=== PATIENT | female | born 1955 | race Caucasian/White ===

== ENCOUNTER → 2019-06-29 | Outpatient (CLI) | payer BC ==
[2019-06-29 10:36] LABS: Anisocytosis Slight; HCT 36.2 % (34.0-46.0); HGB 11.1 gm/dL (11.4-16.0); Hypochromasia Moderate; MCH 24.3 pg (25.0-35.0); MCHC 30.5 g/dL (31.0-37.0); MCV 79.4 fL (80.0-100.0); Mean Platelet Volume 9.1; Microcytosis Slight; Platelet Count 180 k/uL (150-450); RBC 4.56 m/uL (3.80-5.40); RDW 16.2 % (11.5-15.5)
[2019-06-29 10:58] LABS: African American GFR (CKD) >90 (>60 ml/min/1.73 sqM); Anion Gap 7 mmol/L; Blood Urea Nitrogen 20 mg/dL (7-17); Carbon Dioxide 27 mmol/L (22-30); Chloride 105 mmol/L (98-107); Non-African American GFR(CKD) 82 (>60 ml/min/1.73 sqM); Potassium 4.9 mmol/L (3.5-5.1); Sodium 139 mmol/L (137-145)
== END | disposition home or self-care (01) ==
LOC: LABPAT 09:54
PROVIDERS: ATTEND Internal Medicine Interventional Cardiology
DX: Z01.812 Encounter for preprocedural laboratory examination (principal); I25.10 Atherosclerotic heart disease of native coronary artery without angina pectoris
CPT/HCPCS: 36415; 80051; 82565; 84520; 85027

== ENCOUNTER 2019-07-07 09:04 | Day surgery (SDC) | payer BC ==
[2019-07-02 09:35] VITALS: BMI 42.0
[~2019-07-07 09:04] MED LIST: ALPRAZolam 0.25 MG TAB PO PRN; ALPRAZolam 0.5 MG TAB PO PRN; ASPIRIN 325 MG TAB PO STA; ATORVASTATIN 80 MG TAB PO STA; NITROGLYCERIN SL TABS 0.4 MG TAB SUBLINGUAL PRN; SODIUM CHLORIDE 0.9% 1,000 ML in EMPTY BAG 1 BAG IV ONE
[2019-07-07] MEDS ORDERED: hydrALAZINE HCL 20 MG/ML 1 ML VIAL ONE (09:51)
[2019-07-07] MEDS: INSULIN ASPART (NovoLOG) 100 UNIT/ML VIAL SQ SCH ×3 (09:54→21:08)
[2019-07-07 09:55] LABS: Glucose,Whole Blood 242 mg/dL (75-99)
[2019-07-07] MEDS ORDERED: LIDOCAINE 1% INJ 10MG/ML (20 ML MDV) ONE (09:55)
[2019-07-07] MEDS ORDERED: MIDAZOLAM 2 MG/2 ML VIAL IV ONE (10:23)
[2019-07-07] MEDS ORDERED: LIDOCAINE 1% INJ 10MG/ML (20 ML MDV) SQ ONE (10:25)
[2019-07-07] MEDS: MIDAZOLAM 2 MG/2 ML VIAL IV ONE ×2 (10:26→10:30)
[2019-07-07] MEDS ORDERED: BIVALIRUDIN 250 MG in SODIUM CHLORIDE 0.9% 50 ML IV ONE (10:54)
[2019-07-07] MEDS ORDERED: BIVALIRUDIN BOLUS 250 MG/50 ML IV ONE (10:54)
[2019-07-07] MEDS ORDERED: niCARdipine 25 MG/10 ML VIAL ONE (10:56)
[2019-07-07] MEDS: NITROGLYCERIN 1000MCG/10ML SYRINGE INTRACORON ONE ×2 (11:01→11:06)
[2019-07-07] MEDS ORDERED: IOPAMIDOL-370 125ML BTL INJ ONE (11:04)
[2019-07-07] MEDS ORDERED: niCARdipine Syringe (1,000 mcg/10 mL) INTRACORON ONE (11:06)
[2019-07-07] MEDS ORDERED: CLOPIDOGREL 75 MG TAB PO ONE (11:07)
[2019-07-07] MEDS ORDERED: IOPAMIDOL-370 100ML BTL INJ ONE (11:07)
[2019-07-07] MEDS ORDERED: CLOPIDOGREL 75 MG TAB ONE (11:08)
[2019-07-07] MEDS ORDERED: MAG HYDROX/AL HYDROX/SIMETH 30 ML CUP PO PRN (11:17)
[2019-07-07] MEDS ORDERED: RX INFO: IV CONTRAST WAS GIVEN 1 EACH MISC MISCELLANE PRN (11:17)
[2019-07-07] MEDS ORDERED: ZOLPIDEM 5 MG TAB PO PRN (11:17)
[2019-07-07] MEDS ORDERED: NITROGLYCERIN SL TABS 0.4 MG TAB SUBLINGUAL PRN (11:17)
[2019-07-07] MEDS ORDERED: ATROPINE SULFATE 0.1 MG/ML 10ML SYRINGE IV PRN (11:17)
[2019-07-07] MEDS ORDERED: SODIUM CHLORIDE 0.9% 1,000 ML IV SCH (11:30)
--- NOTE | 2019-07-07 11:35 | LTR ---
July 07, 2019 Re: Harini Tran. Dear Dr. Ham: Ms. Harini Tran underwent today a heart catheterization and successful stenting of the RCA I want to thank you for allowing me to participate in her care and please do not hesitate to call if you have any question or concern. Sincerely, MD SHER Wiseman / BONIFACIO: [id number] /
--- NOTE | 2019-07-07 11:53 | CC ---
CARDIAC CATHETERIZATION REPORT CARDIAC CATHETERIZATION AND PERCUTANEOUS CORONARY INTERVENTION: DATE OF SERVICE: July 07, 2019 PERFORMING PHYSICIAN: Laith Vela MD. PROCEDURE PERFORMED: 1. Selective left and right coronary angiogram. 2. STREETER to LAD angiogram. 3. SVG to ramus intermedius angiogram. 4. SVG to left circumflex angiogram. 5. SVG to RCA angiogram. 6. Left heart catheterization. 7. Successful stenting of the distal right coronary artery through SVG using 2.0 x 26 mm [place] ALEX with an excellent angiographic result and reduction of stenosis from 80% to 0%. INDICATION: This is a 63-year-old female patient with coronary artery disease and prior coronary artery bypass grafting where she received STREETER to LAD, SVG to ramus intermedius, SVG to OM, and SVG to RCA, continues to have chest discomfort with exertion concerning for angina. In the past, she underwent a stress test and that revealed reversible defect, but she was treated medically for a while, but lately her symptoms has became more frequent and more intense compared to before and because of that, a heart catheterization was advised. APPROACH: Right common femoral artery. COMPLICATION: None. LEVEL OF SEDATION: Moderate with sedation length of 45 minutes. PROCEDURE DESCRIPTION: After obtaining an informed consent, the patient was brought to the cardiac offset label rewinder. The right common femoral artery was cannulated using micropuncture technique, the micropuncture wire passed easily then I placed a 6-Belizean sheath at the right common femoral artery. Selective left and right coronary angiogram was performed using JL4 and JR4 catheters. STREETER to LAD angiogram, SVG to ramus intermedius angiogram, and SVG to left circumflex angiogram performed using the JR4 catheter. The SVG to RCA angiogram was performed using Mehdi Right catheter. Left heart catheterization was performed using 6-Belizean pigtail catheter. After that I did intervene on the RCA, please see a separate paragraph for that. SELECTIVE CORONARY ANGIOGRAM: 1. Left main appeared to have mild disease only. It bifurcates into LCX and LAD. 2. The LCX is a large caliber vessel. It is a codominant vessel. The proximal circumflex appeared to have mild disease only. It gives rise into the first and second obtuse marginal branches. The first OM is a medium caliber vessel with severe disease in the proximal portion. OM2 is a medium to large caliber vessel with severe disease in the midportion and intermediate disease in the proximal portion reach the ostium. The left circumflex continues after that as a medium to large caliber vessel and seems to be angiographically normal. 3. The LAD: The proximal LAD appeared to be diseased in the range of 50% to 60%. Then the LAD in the midportion is 100% occluded. 4. The right coronary artery is a large caliber vessel with severe disease involving the mid portion. CORONARY BYPASSES ANGIOGRAM: 1. The STREETER to LAD is patent. 2. SVG to ramus intermedius is occluded. 3. SVG to left circumflex is occluded. 4. SVG to RCA is patent, but the RCA distal to the SVG anastomosis has a lesion appeared to be in the range of 70% to 80%. HEMODYNAMICS: The LVEDP was about 10 to 12 mmHg without significant gradient across aortic valve. PCI OF THE RCA: Anticoagulation was initiated using Angiomax. Subsequently I did engage the SVG to RCA using Mehdi Right guide. I did wire it using a whisper wire. After that I did PTCA ballooning using 2.0 x 12 mm balloon before I deployed 2.0 x 26 mm [place] ALEX where the stent was positioned under fluoroscopy guidance and deployed under 20 atmospheres for 20 seconds with the following angiogram showing excellent angiographic results. The procedure was completed without any complication. CONCLUSION: 1. Severe triple-vessel coronary artery disease. 2. Patent STREETER to LAD. 3. Occluded SVG to ramus intermedius. 4. Occluded SVG to left circumflex. 5. Patent SVG to RCA, but the PDA distal to the SVG anastomosis has severe disease. 6. Successful stenting of the PDA branch of the RCA through the SVG using 2.0 x 26 mm Andrey ALEX with excellent angiographic results. POSTPROCEDURE MANAGEMENT: 1. The patient needs to undergo a PCI of the ramus intermedius as well as left circumflex in the next few weeks. 2. Follow up with the patient. MMODL / IJN: [id number] /
[2019-07-07 12:14] LABS: Glucose,Whole Blood 208 mg/dL (75-99)
[2019-07-07] MEDS: GLIMEPIRIDE 2 MG TAB PO SCH (12:54)
[2019-07-07 16:24] LABS: Glucose,Whole Blood 302 mg/dL (75-99)
[2019-07-07] MEDS ORDERED: INSULIN DETEMIR (LEVEMIR) 100 UNIT/ML SYR SQ SCH ×2 (17:30→21:00)
[2019-07-07 20:57] LABS: Glucose,Whole Blood 139 mg/dL (75-99)
[2019-07-07] MEDS ORDERED: ATORVASTATIN 80 MG TAB PO SCH (21:00)
[2019-07-07] MEDS ORDERED: ISOSORBIDE MONONITRATE ER 30 MG TAB.ER.24H PO SCH (21:00)
[2019-07-08 04:30] VITALS: RESP 16
[2019-07-08 06:13] LABS: Glucose,Whole Blood 110 mg/dL (75-99)
[2019-07-08] MEDS: INSULIN ASPART (NovoLOG) 100 UNIT/ML VIAL SQ SCH (06:15)
[2019-07-08] MEDS: GLIMEPIRIDE 2 MG TAB PO SCH (06:45)
[2019-07-08 07:12] LABS: Anisocytosis Slight; Basophils % (A) 0 %; Eosinophils # (A) 0.3 k/uL (0-0.7); Eosinophils % (A) 4 %; HCT 35.5 % (34.0-46.0); HGB 11.1 gm/dL (11.4-16.0); Hypochromasia Slight; Lymphocytes # (A) 1.9 k/uL (1.0-4.8); Lymphocytes % (A) 24 %; MCH 24.8 pg (25.0-35.0); MCHC 31.4 g/dL (31.0-37.0); MCV 79.1 fL (80.0-100.0); Microcytosis Slight; Monocytes # (A) 0.5 k/uL (0-1.0); Monocytes % (A) 6 %; Neutrophils % (A) 64 %; Platelet Count 216 k/uL (150-450); RBC 4.49 m/uL (3.80-5.40); RDW 16.4 % (11.5-15.5); WBC 7.8 k/uL (3.8-10.6)
[2019-07-08 07:26] LABS: Calcium 9.1 mg/dL (8.4-10.2); Potassium 5.4 mmol/L (3.5-5.1)
[2019-07-08 08:47] VITALS: BP 160/76; PULSE 76; TEMP 97.6
[2019-07-08] MEDS ORDERED: ASPIRIN 81 MG PO SCH (09:00)
[2019-07-08] MEDS ORDERED: CLOPIDOGREL 75 MG TAB PO SCH (09:00)
[2019-07-08] MEDS ORDERED: METOPROLOL SUCCINATE (ER) 25 MG TAB.ER.24H PO SCH (09:00)
--- NOTE | 2019-07-08 11:57 | P.PN ---
Subjective Progress Note Date: 07/08/19 This is a 63-year-old female patient with known history of coronary artery disease and prior bypass surgery where she received a STREETER to the LAD, saphenous vein graft to the ramus intermedius, saphenous vein graft to the OM, and saphenous vein graft to the RCA, she was brought to the hospital by Dr. Calvert to undergo cardiac catheterization because of frequent chest discomfort. Cardiac catheterization was performed and patient subsequently underwent successful stenting of the distal right coronary artery through the SVG. The patient was seen and examined this morning, he is doing well, denies any chest pain or difficulty in breathing. Blood pressure 160/70 with a heart rate in the 70s, 96% on room air. White blood cell count 7.8, hemoglobin 11.1, platelet count 216. Sodium 140, potassium 5.4, BUN 17, creatinine 0.8. EKG from this morning showed normal sinus rhythm with no changes from post-PCI. Objective - Vital Signs Vital signs: Vital Signs Temp 97.6 F 07/08/19 08:00 Pulse 76 07/08/19 08:30 Resp 16 07/08/19 08:30 BP 160/76 07/08/19 08:00 Pulse Ox 96 07/08/19 08:00 Intake & Output 07/07/19 07/08/19 07/08/19 18:59 06:59 18:59 Intake Total 230 540 210 Output Total 100 600 Balance 230 440 -390 Weight 104.326 kg 108.9 kg Intake: IV 230 10 Invasive Line 1 10 Oral 540 200 Output: Urine 100 600 Other: # Voids 1 2 - Exam PHYSICAL EXAMINATION: GENERAL: 63-year-old female in no acute distress at the time of my examination HEENT: Head is atraumatic, normocephalic. Pupils equal, round. Sclera anicteric. Conjunctiva are clear. Mucous membranes of the mouth are moist. Neck is supple. There is no elevated jugular venous pressure. No carotid bruit is heard. HEART EXAMINATION: Heart S1, S2 normal. No murmur or gallop heard. CHEST EXAMINATION: Lungs are clear to auscultation and precussion. No chest wall tenderness is noted on palpation or with deep breathing. ABDOMEN: Soft, nontender. Bowel sounds are heard. No organomegaly noted. EXTREMITIES: 2+ peripheral pulses with no evidence of peripheral edema and no calf tenderness noted. Right groin soft, no evidence of any hematoma. NEUROLOGIC patient is awake, alert and oriented 3 ?-3. . - Labs CBC & Chem 7: 07/08/19 06:27 07/08/19 06:27 Labs: Abnormal Lab Results - Last 24 Hours (Table) 07/07/19 07/07/19 07/07/19 Range/Units 12:13 16:22 20:56 Hgb (11.4-16.0) gm/dL MCV (80.0-100.0) fL MCH (25.0-35.0) pg RDW (11.5-15.5) % Potassium (3.5-5.1) mmol/L Chloride (98-107) mmol/L Glucose (74-99) mg/dL POC Glucose (mg/dL) 208 H 302 H 139 H (75-99) mg/dL 07/08/19 07/08/19 07/08/19 Range/Units 06:11 06:27 06:27 Hgb 11.1 L (11.4-16.0) gm/dL MCV 79.1 L (80.0-100.0) fL MCH 24.8 L (25.0-35.0) pg RDW 16.4 H (11.5-15.5) % Potassium 5.4 H (3.5-5.1) mmol/L Chloride 108 H (98-107) mmol/L Glucose 108 H (74-99) mg/dL POC Glucose (mg/dL) 110 H (75-99) mg/dL Assessment and Plan Plan: Assessment and plan #1 status post angioplasty and stenting of the PDA branch of the RCA SVG through the RCA #2 coronary artery disease with prior bypass surgery #3 hypertension #4 hyperlipidemia #5 nicotine dependence Plan Patient will be discharged home today. She needs to undergo PCI of the ramus intermedius as well as the circumflex over the next few weeks. Discharge medications include aspirin 81 mg daily, Lipitor 80 mg daily, Plavix 75 mg daily, insulin as at home, Imdur 30 mg daily, Toprol-XL 25 mg daily, and sublingual nitroglycerin as needed for chest pain. Patient is not currently on an LAUREN inhibitor because of elevated potassium levels. Follow-up appointment with Dr. Calvert in the office. DNP note has been reviewed, I agree with a documented findings and plan of care. Patient was seen and examined.
== END 2019-07-08 11:47 | disposition home or self-care (01) ==
LOC: CATHCVL 09:04 → 3SCARD 11:10 → CATHCVL 07-08 11:47
PROVIDERS: ATTEND Internal Medicine Interventional Cardiology
DX: I25.110 Atherosclerotic heart disease of native coronary artery with unstable angina pectoris (principal); I10 Essential (primary) hypertension; E78.00 Pure hypercholesterolemia, unspecified; E78.5 Hyperlipidemia, unspecified; E11.9 Type 2 diabetes mellitus without complications; E66.9 Obesity, unspecified; F17.210 Nicotine dependence, cigarettes, uncomplicated; Z95.1 Presence of aortocoronary bypass graft; Z79.4 Long term (current) use of insulin; Z79.82 Long term (current) use of aspirin; Z79.899 Other long term (current) drug therapy; Z88.5 Allergy status to narcotic agent; Z68.41 Body mass index [BMI] 40.0-44.9, adult; Z86.79 Personal history of other diseases of the circulatory system
CPT/HCPCS: 93459; 80048; 85025; C9604; C1760; C1769 ×3; C1725; C1887; C1894; C1874; J2250; J0360; J2001; J0583; Q9967 ×2

== ENCOUNTER → 2019-10-07 | Outpatient (CLI) | payer MEDICARE, OTHER ==
[2019-10-07 14:19] LABS: HCT 37.3 % (34.0-46.0); HGB 11.8 gm/dL (11.4-16.0); Hypochromasia Marked; MCH 26.5 pg (25.0-35.0); MCHC 31.5 g/dL (31.0-37.0); MCV 83.9 fL (80.0-100.0); Mean Platelet Volume 8.5; Platelet Count 218 k/uL (150-450); RBC 4.45 m/uL (3.80-5.40); RDW 15.7 % (11.5-15.5); WBC 8.5 k/uL (3.8-10.6)
[2019-10-07 23:13] LABS: African American GFR (CKD) 77.8 (60.0-200.0); Albumin/Globulin Ratio 1.48 (1.60-3.17); Anion Gap 6.2 mmol/L (4.00-12.00); BUN/Creat Ratio 18.89 Ratio (12.00-20.00); Calcium 9.3 mg/dL (8.7-10.3); Carbon Dioxide 26.8 mmol/L (21.6-31.8); Chol/HDL Ratio 3.14; Globulin 2.7 g/dL (1.6-3.3); LDL Cholesterol,Calculated 41.8 mg/dL (0.0-131.0); Non-African American GFR(CKD) 67.1 (60.0-200.0); Potassium 4.7 mmol/L (3.5-5.5); Total Bilirubin 0.5 mg/dL (0.2-1.2); Total Protein 6.7 g/dL (6.2-8.2); VLDL Calculation 18.2 mg/dL (5.00-40.00)
[2019-10-08 01:05] LABS: Hemoglobin A1C 7.7 % (4.0-6.0)
== END | disposition home or self-care (01) ==
LOC: LABWHC1 12:17
PROVIDERS: ATTEND Internal Medicine Interventional Cardiology
DX: I10 Essential (primary) hypertension (principal); E11.9 Type 2 diabetes mellitus without complications; I25.10 Atherosclerotic heart disease of native coronary artery without angina pectoris
CPT/HCPCS: 80061; 80053; 85027; 83036; 36415; U0003

== ENCOUNTER 2019-10-09 07:47 | Day surgery (SDC) | payer BC, MEDICARE, OTHER ==
[~2019-10-09 07:47] MED LIST changes: +ASPIRIN 325 MG TAB PO ONE; -ASPIRIN 325 MG TAB PO STA; +ATORVASTATIN 80 MG TAB PO ONE; -ATORVASTATIN 80 MG TAB PO STA
[2019-10-09] MEDS ORDERED: ASPIRIN 81 MG ONE (07:58)
[2019-10-09] MEDS ORDERED: hydrALAZINE HCL 20 MG/ML 1 ML VIAL ONE (08:23)
[2019-10-09 08:29] LABS: Glucose,Whole Blood 146 mg/dL (75-99)
[2019-10-09] MEDS ORDERED: MIDAZOLAM 2 MG/2 ML VIAL IV ONE ×2 (09:36→09:57)
[2019-10-09] MEDS ORDERED: LIDOCAINE 1% INJ 10MG/ML (20 ML MDV) SQ ONE (09:38)
[2019-10-09] MEDS ORDERED: BIVALIRUDIN BOLUS 250 MG/50 ML IV ONE (09:42)
[2019-10-09] MEDS ORDERED: BIVALIRUDIN 250 MG in SODIUM CHLORIDE 0.9% 50 ML IV ONE (09:42)
[2019-10-09] MEDS ORDERED: NITROGLYCERIN 1000MCG/10ML SYRINGE INTRACORON ONE ×2 (09:45→10:10)
[2019-10-09] MEDS: NITROGLYCERIN 1000MCG/10ML SYRINGE INTRACORON ONE ×2 (09:53→09:58)
[2019-10-09] MEDS ORDERED: fentaNYL (PF) 50 MCG/ML 2 ML AMP IV ONE (09:56)
[2019-10-09] MEDS ORDERED: IOPAMIDOL-370 125ML BTL INJ ONE (10:16)
[2019-10-09] MEDS ORDERED: CLOPIDOGREL 75 MG TAB PO ONE (10:16)
[2019-10-09] MEDS ORDERED: ATROPINE SULFATE 0.1 MG/ML 10ML SYRINGE IV PRN (10:23)
[2019-10-09] MEDS ORDERED: MAG HYDROX/AL HYDROX/SIMETH 30 ML CUP PO PRN (10:23)
[2019-10-09] MEDS ORDERED: NITROGLYCERIN SL TABS 0.4 MG TAB SUBLINGUAL PRN (10:23)
[2019-10-09] MEDS ORDERED: RX INFO: IV CONTRAST WAS GIVEN 1 EACH MISC MISCELLANE PRN (10:23)
[2019-10-09] MEDS ORDERED: ZOLPIDEM 5 MG TAB PO PRN (10:23)
[2019-10-09] MEDS ORDERED: SODIUM CHLORIDE 0.9% 1,000 ML IV SCH (10:30)
[2019-10-09 10:44] LABS: Glucose,Whole Blood 155 mg/dL (75-99)
--- NOTE | 2019-10-09 12:59 | PTCA ---
PERCUTANEOUSTRANS CORORONARY ANGIOGRAPHY DATE OF SERVICE: 10/09/2019 PERFORMING PHYSICIAN: Laith Vela MD. PROCEDURE PERFORMED: 1. Successful stenting of the ramus intermedius coronary artery using 2.0 x 15 mm [place] drug-eluting stent with an excellent angiographic results and reduction of stenosis from 80% to 0%. 2. Successful stenting of the first obtuse marginal branch of left circumflex using 2.0 x 18 mm [place] drug-eluting stent with an excellent angiographic results and reduction of stenosis from 90% to 0%. INDICATION: This is a very pleasant 64-year-old female patient with coronary artery disease and prior coronary artery bypass grafting, who was experiencing symptoms of chest discomfort and shortness of breath. She underwent myocardial perfusion imaging stress test and that revealed basal lateral ischemia. Subsequently, she underwent a heart catheterization which revealed severe triple-vessel coronary artery disease with patent STREETER to the LAD and occluded vein graft to ramus intermedius, as well as left circumflex. The SVG to RCA was patent, but she did have a PDA branch of the RCA which was which was found to be severely diseased and I did perform successful stenting of that PDA. She was brought today to undergo an intervention on the ramus intermedius as well as OM1. She was brought in today to undergo an intervention of the ramus intermedius as well as OM1. APPROACH: Right common femoral artery. COMPLICATION: None. LEVEL OF SEDATION: Moderate with sedation length of 38 minutes. PROCEDURE DESCRIPTION: After obtaining an informed consent, the patient was brought to the cardiac dental laboratory technician. The right common femoral artery was cannulated using micropuncture technique, the micropuncture wire passed easily, then I placed a 6-[place] sheath at the right common femoral artery. After that, I did start anticoagulation with Angiomax. Subsequently, I did engage the left main using an XP35 guide. After that, I did wire the ramus intermedius using a whisper wire. Balloon angioplasty was performed using 2.0 x 12 mm balloon before I deployed 2.0 x 15 mm [place] drug-eluting stent where the stent was positioned under fluoroscopy guidance and then deployed under 14 atmospheres for 20 seconds. The following angiogram showed great angiographic results. After that, I attempted advancing the whisper wire into OM1, but the wire would not go, so I left the wire in the distal left circumflex and I wired OM1 using a run-through wire. After that I did balloon angioplasty of OM1 using 2.0 x 12 mm balloon. The same balloon I used for ramus intermedius. The balloon angioplasty was initially the balloon was inflated under 12 atmospheres for 20 seconds. I deployed subsequently 2 0 x 18 mm another [place] drug-eluting stent where the stent again was positioned under fluoroscopy guidance and deployed under 14 atmospheres for 20 seconds. The following angiogram showed good angiographic results as well. The procedure was completed without any complication. POSTPROCEDURE MANAGEMENT: 1. Dual anti-platelet therapy. 2. Risk factors modifications. 3. Follow up with the patient. MMODL / IJN: [id number] /
[2019-10-09 16:36] LABS: Glucose,Whole Blood 194 mg/dL (75-99)
[2019-10-09 20:14] LABS: Glucose,Whole Blood 242 mg/dL (75-99)
[2019-10-09] MEDS ORDERED: INSULIN DETEMIR (LEVEMIR) 100 UNIT/ML SYR SQ SCH (21:00)
[2019-10-09] MEDS ORDERED: ATORVASTATIN 80 MG TAB PO SCH (21:00)
[2019-10-09] MEDS: GLIMEPIRIDE 2 MG TAB PO SCH (22:00)
[2019-10-10 06:29] LABS: Glucose,Whole Blood 85 mg/dL (75-99)
[2019-10-10 07:34] LABS: Basophils % (A) 0 %; Eosinophils # (A) 0.3 k/uL (0-0.7); Eosinophils % (A) 4 %; HCT 37.6 % (34.0-46.0); HGB 11.9 gm/dL (11.4-16.0); Hypochromasia Slight; Lymphocytes # (A) 1.6 k/uL (1.0-4.8); Lymphocytes % (A) 18 %; MCH 26.2 pg (25.0-35.0); MCHC 31.7 g/dL (31.0-37.0); MCV 82.6 fL (80.0-100.0); Mean Platelet Volume 8.3; Monocytes # (A) 0.5 k/uL (0-1.0); Monocytes % (A) 5 %; Neutrophils # (A) 6.3 k/uL (1.3-7.7); Neutrophils % (A) 71 %; Platelet Count 201 k/uL (150-450); RBC 4.56 m/uL (3.80-5.40); RDW 15.6 % (11.5-15.5); WBC 8.8 k/uL (3.8-10.6)
[2019-10-10 08:05] LABS: African American GFR (CKD) >90 (>60 ml/min/1.73 sqM); Anion Gap 6 mmol/L; Blood Urea Nitrogen 13 mg/dL (7-17); Calcium 8.7 mg/dL (8.4-10.2); Carbon Dioxide 25 mmol/L (22-30); Chloride 111 mmol/L (98-107); Glucose 81 mg/dL (74-99); Non-African American GFR(CKD) >90 (>60 ml/min/1.73 sqM); Sodium 142 mmol/L (137-145)
[2019-10-10] MEDS ORDERED: CLOPIDOGREL 75 MG TAB PO SCH (09:00)
[2019-10-10] MEDS ORDERED: ASPIRIN 81 MG PO SCH (09:00)
[2019-10-10] MEDS ORDERED: ISOSORBIDE MONONITRATE ER 30 MG TAB.ER.24H PO SCH (09:00)
[2019-10-10] MEDS ORDERED: MULTIVITAMINS, THERA 1 EACH TAB PO SCH (09:00)
[2019-10-10] MEDS ORDERED: METOPROLOL SUCCINATE (ER) 25 MG TAB.ER.24H PO SCH (09:00)
[2019-10-10 09:11] VITALS: PULSE 71; RESP 16; TEMP 97
[2019-10-10 10:03] VITALS: BMI 44.3
--- NOTE | 2019-10-10 10:38 | P.PN ---
Subjective Progress Note Date: 10/10/19 discharge note This is a pleasant 64-year-old female with coronary artery disease and prior coronary artery bypass grafting surgery who underwent myocardial perfusion imaging stress test that revealed nasal or lateral ischemia. Subsequently she underwent a heart catheterization which revealed severe triple-vessel coronary artery disease with a patent STREETER to the LAD and occluded vein graft to the ramus intermedius as well as circumflex. The SVG to the RCA was patent but she did have a PDA branch of the RCA which was found to be severely diseased, she underwent stenting of the PDA. She was brought into the hospital yesterday to undergo intervention on the ramus intermedius and OM. She was seen and examined this morning, doing well, denied any chest pain or difficulty in breathing up ambulating without any difficulty. EKG from this morning showed a normal sinus rhythm with no changes from post-PCI.her blood pressure this morningbefore medication administration 190/78 with a heart rate in the 70s, 99% on room air. We will add a dose of LAUREN inhibitor to her medication regime. Objective - Vital Signs Vital signs: Vital Signs Temp 97.0 F L 10/10/19 08:00 Pulse 71 10/10/19 08:00 Resp 16 10/10/19 08:00 BP 190/79 10/10/19 08:00 Pulse Ox 99 10/10/19 08:00 Intake & Output 10/09/19 10/10/19 10/10/19 18:59 06:59 18:59 Intake Total 1378 840 240 Balance 1378 840 240 Weight 108.1 kg 110 kg 110 kg Intake: IV 1138 Sodium Chloride 0.9% 1, 950 000 ml @ 75 mls/hr IV . [id number] ALVAREZ Rx#:[id number] Intake, IV Titration 600 Amount Sodium Chloride 0.9% 1, 600 000 ml @ 75 mls/hr IV . [id number] ALVAREZ Rx#:[id number] Oral 240 240 240 Other: # Voids 1 2 - Exam PHYSICAL EXAMINATION: GENERAL:64-year-old female in no acute distress at the time of my examination HEENT: Head is atraumatic, normocephalic. Pupils equal, round. Sclera anicteric. Conjunctiva are clear. Mucous membranes of the mouth are moist. Neck is supple. There is no elevated jugular venous pressure.no carotid bruit is heard. HEART EXAMINATION: [Heart S1, S2 normal. No murmur or gallop heard.] CHEST EXAMINATION:[ Lungs are clear to auscultation and precussion. No chest wall tenderness is noted on palpation or with deep breathing.] ABDOMEN: [ Soft, nontender. Bowel sounds are heard. No organomegaly noted]. EXTREMITIES:[ 2+ peripheral pulses with no evidence of peripheral edema and no calf tenderness noted].right groin is soft, no evidence of any hematoma. NEUROLOGIC [patient is awake, alert and oriented X3] . - Labs CBC & Chem 7: 10/10/19 07:01 10/10/19 07:01 Labs: Abnormal Lab Results - Last 24 Hours (Table) 10/09/19 10/09/19 10/09/19 Range/Units 10:37 16:34 20:13 RDW (11.5-15.5) % Chloride (98-107) mmol/L POC Glucose (mg/dL) 155 H 194 H 242 H (75-99) mg/dL 10/10/19 10/10/19 Range/Units 07:01 07:01 RDW 15.6 H (11.5-15.5) % Chloride 111 H (98-107) mmol/L POC Glucose (mg/dL) (75-99) mg/dL Assessment and Plan Plan: assessment and plan #1 status post angioplasty and stenting of the ramus intermedius and OM1 #2 known history of coronary artery disease with prior bypass surgery and recent PDA stenting #3 hypertension, accelerated #4 hyperlipidemia #5 diabetes Plan We will add losartan to the patient's medication regime. She may be able to be discharged home today. Follow-up appointment in the office with Dr. Calvert post discharge.discharge medications include aspirin 81 mg daily, Lipitor 80 mg daily, Plavix 75 mg daily, Amaryl 2 mg twice a day, insulin as at home, Imdur 30 mg daily, metoprolol 25 mg daily,sublingual nitroglycerin as needed for chest pain. DNP note has been reviewed, I agree with a documented findings and plan of care. Patient was seen and examined.
[2019-10-10] MEDS ORDERED: LOSARTAN 25 MG TAB PO SCH (10:45)
[2019-10-10 10:46] VITALS: BP 166/70
[2019-10-10] MEDS: GLIMEPIRIDE 2 MG TAB PO SCH (11:04)
== END 2019-10-10 11:02 | disposition home or self-care (01) ==
LOC: CATHCVL 07:47 → 3SCARD 10:39 → CATHCVL 10-10 11:02
PROVIDERS: ATTEND Internal Medicine Interventional Cardiology
DX: I25.10 Atherosclerotic heart disease of native coronary artery without angina pectoris (principal); I25.9 Chronic ischemic heart disease, unspecified; I10 Essential (primary) hypertension; E78.5 Hyperlipidemia, unspecified; E11.9 Type 2 diabetes mellitus without complications; Z95.1 Presence of aortocoronary bypass graft; Z95.5 Presence of coronary angioplasty implant and graft; Z79.82 Long term (current) use of aspirin; Z79.899 Other long term (current) drug therapy; Z79.02 Long term (current) use of antithrombotics/antiplatelets; Z79.4 Long term (current) use of insulin
CPT/HCPCS: 80048; 85025; C9600; C1769 ×2; C1725; C1887; C1894; C1874; J2250; J0360; J2001; J3010; J0583; Q9967

== ENCOUNTER 2021-05-18 08:52 | Day surgery (SDC) | payer MEDICARE ==
[2021-05-16 11:00] VITALS: BMI 34.5
--- NOTE | 2021-05-17 21:38 | P.GSHP ---
History of Present Illness H&P Date: 05/17/21 Chief Complaint: Right hydronephrosis The patient is a 65-year-old white female diagnosed with stage III cervical cancer in January 2021. She will be treated with chemoradiation. PET/CT scan shows moderate to severe right hydroureteronephrosis. The serum creatinine level is 1.1. She is currently receiving Bactrim DS for a Klebsiella UTI. She was recently treated for a UTI, her first ever. - Genitourinary (Female) Genitourinary: Denies dysuria, Denies hematuria Past Medical History Past Medical History: Coronary Artery Disease (CAD), Cancer, Diabetes Mellitus, Hyperlipidemia, Hypertension, Myocardial Infarction (LA), Osteoarthritis (OA) Additional Past Medical History / Comment(s): anemia, getting radiation to cervix for cancer Last Myocardial Infarction Date:: 2013 History of Any Multi-Drug Resistant Organisms: None Reported Past Surgical History: Cholecystectomy, Coronary Bypass/CABG, Heart Catheterization, Heart Catheterization With Stent, Orthopedic Surgery Additional Past Surgical History / Comment(s): 2014 CABG. LEFT CARPAL TUNNEL 4 cardiac stents, stephany cataracts Past Anesthesia/Blood Transfusion Reactions: Postoperative Nausea & Vomiting (PONV) Additional Past Anesthesia/Blood Transfusion Reaction / Comment(s): blood transfusion scheduled for 05/17/21- had one 05/10/21, Date of Last Stent Placement:: 09/2019 Smoking Status: Former smoker - Past Family History Father Family Medical History: No Reported History Mother Family Medical History: Cancer Medications and Allergies Home Medications Medication Instructions Recorded Confirmed Type Atorvastatin [Lipitor] 80 mg PO HS 11/18/15 05/17/21 History Aspirin EC [Ecotrin Low Dose] 81 mg PO DAILY 07/02/19 05/17/21 History Glimepiride [Amaryl] 2 mg PO BID 07/02/19 05/17/21 History Nitroglycerin Sl Tabs [Nitrostat] 1 tab PO DIRECTED PRN #25 tab 07/08/19 05/17/21 Rx lisinopriL [Zestril] 2.5 mg PO DAILY 01/04/21 05/17/21 History Acetaminophen [Tylenol Extra 500 mg PO DIRECTED PRN 05/16/21 05/17/21 History Strength] Insulin Glargine,Hum.rec.anlog 10 unit SQ HS 05/16/21 05/17/21 History [Lantus Solostar Pen] Metoprolol Succinate (ER) [Toprol 50 mg PO QAM 05/16/21 05/17/21 History Xl] metFORMIN HCL [Glucophage] 500 mg PO BID 05/16/21 05/17/21 History Allergies Allergy/AdvReac Type Severity Reaction Status Date / Time codeine Allergy Rash/Hives Verified 05/17/21 14:15 Surgical - Exam - General well developed, well nourished, no distress - Neck no masses, trachea midline - Respiratory normal respiratory effort - Abdomen Abdomen: soft, tender (Mild suprapubic tenderness), no guarding, no rigid, no rebound - Psychiatric oriented to time, oriented to person, oriented to place, speech is normal, memory intact Results - Imaging CT scan - abdomen: report reviewed Assessment and Plan (1) Unspecified hydronephrosis Status: Acute Code(s): N13.30 - UNSPECIFIED HYDRONEPHROSIS SNOMED Code(s): 82649046 Plan: Cystoscopy, right retrograde pyelogram, right ureteral stent insertion. The procedure has been reviewed in detail with the patient and her daughter. They understand that the rationale for the procedure is to relieve ureteral obstruction and preserve right renal function. They are aware of potential risks, which include anesthesia, bleeding, infection, inability to successfully place a stent, and ureteral injury. They also understand that the stent will need to be changed periodically, and that consideration will be given to stent removal if she has a favorable response to therapy.
[~2021-05-18 08:52] MED LIST changes: -ALPRAZolam 0.25 MG TAB PO PRN; -ALPRAZolam 0.5 MG TAB PO PRN; -ASPIRIN 325 MG TAB PO ONE; -ATORVASTATIN 80 MG TAB PO ONE; +HYDROmorphone 0.5 MG/0.5 ML SYRINGE IVP PRN; +LACTATED RINGERS 1,000 ML IV SCH; +LIDOCAINE 1% (10MG/ML) FOR IV START INTRADERMA PRN; +METOCLOPRAMIDE 5 MG/ML 2 ML VIAL IVP PRN; -NITROGLYCERIN SL TABS 0.4 MG TAB SUBLINGUAL PRN; +ONDANSETRON 4 MG/2 ML VIAL IVP ONE; -SODIUM CHLORIDE 0.9% 1,000 ML in EMPTY BAG 1 BAG IV ONE
[2021-05-18 09:35] LABS: Glucose,Whole Blood 114 mg/dL (75-99)
[2021-05-18 09:45] LABS: Anisocytosis Moderate; Basophils % (A) 0 %; Eosinophils # (A) 0.2 k/uL (0-0.7); Eosinophils % (A) 1 %; HCT 31.6 % (34.0-46.0); HGB 9.9 gm/dL (11.4-16.0); Hypochromasia Marked; Lymphocytes # (A) 0.7 k/uL (1.0-4.8); Lymphocytes % (A) 4 %; MCH 23.5 pg (25.0-35.0); MCHC 31.3 g/dL (31.0-37.0); MCV 75.1 fL (80.0-100.0); Mean Platelet Volume 7.4; Microcytosis Moderate; Monocytes # (A) 0.5 k/uL (0-1.0); Monocytes % (A) 3 %; Neutrophils # (A) 14.8 k/uL (1.3-7.7); Neutrophils % (A) 91 %; Platelet Count 393 k/uL (150-450); RDW 22.2 % (11.5-15.5); WBC 16.4 k/uL (3.8-10.6)
[2021-05-18 10:21] LABS: Calcium 9.6 mg/dL (8.4-10.2)
[2021-05-18 10:22] LABS: Potassium 4.7 mmol/L (3.5-5.1)
[2021-05-18] MEDS ORDERED: PROPOFOL 10 MG/ML 20 ML VIAL IV ONE (10:33)
[2021-05-18] MEDS ORDERED: LIDOCAINE 1% INJ 10MG/ML (20 ML MDV) ONE (10:33)
[2021-05-18] MEDS ORDERED: SUCCINYLCHOLINE CHLORIDE 100 MG/5 ML SYR IV ONE (10:33)
[2021-05-18] MEDS ORDERED: fentaNYL (PF) 50 MCG/ML 2 ML AMP ONE (10:33)
[2021-05-18] MEDS ORDERED: IOPAMIDOL-300 50ML BTL MISCELLANE ONE (10:58)
[2021-05-18] MEDS ORDERED: LACTATED RINGERS 1,000 ML IV ONE (11:25)
--- NOTE | 2021-05-18 11:33 | FL ---
EXAMINATION TYPE: FL urography retrograde DATE OF EXAM: 05/18/2021 CLINICAL HISTORY: Uterine cancer. TECHNIQUE: Fluoroscopy. COMPARISON: None. FINDINGS: Fluoroscopic guidance was provided during bilateral ureter stent insertion procedure perfo rmed by Dr. Gifford. A total of 41 seconds of fluoroscopic time was utilized during the procedure and 3 spot images was acquired. Images acquired show partial visualization of proximal portion of bilate ral double-J ureter stents. IMPRESSION: As Above.
[2021-05-18 11:46] VITALS: TEMP 96.8
--- NOTE | 2021-05-18 11:48 | P.OP ---
Date of Procedure: 05/18/21 Preoperative Diagnosis: Right hydronephrosis Postoperative Diagnosis: Bilateral hydronephrosis Procedure(s) Performed: Cystoscopy, bilateral retrograde pyelograms, bilateral ureteral stent insertion, fulguration of bleeder Anesthesia: BEATRIZA Surgeon: Masoud Gifford Estimated Blood Loss (ml): 5 IV fluids (ml): 700 Pathology: none sent Condition: stable Disposition: PACU Indications for Procedure: The patient is a 65-year-old white female diagnosed with stage III cervical cancer in January 2021. She will be treated with chemoradiation. PET/CT scan shows moderate to severe right hydroureteronephrosis. The serum creatinine level is 1.1. Operative Findings: Elevation of the bladder trigone due to extrinsic compression. Left hydroureter. Description of Procedure: The patient was taken to the operating room and placed in the dorsolithotomy position, with legs supported in Rafael stirrups. The external genitalia was prepped and draped sterilely. The 30 lens was used to introduce the 22-[place] Stortz cystoscopic sheath through the urethra and into the bladder under direct vision. The bladder was examined in its entirety. Although no tumors were seen, the trigone was elevated due to extrinsic compression. It was possible to identify the ureteral orifices. No tumors were seen elsewhere in the bladder, and there were no foreign bodies. Using a 10-[place] cone-tipped catheter, a right retrograde pyelogram was performed. However, due to angulation of the ureteral orifice no contrast passed into the ureter. A left retrograde pyelogram revealed narrowing of the terminal ureter, with ureteral dilation noted proximal to this. An angle-tip 0.035 inch Glidewire was passed through the cystoscope. The left ureteral orifice was cannulated, and the Glidewire was slowly advanced up to the renal pelvis. A 22 cm, 7-[place] double-J ureteral stent was placed over the wire. Proper stent positioning was verified fluoroscopically and endoscopically. The same was then repeated on the contralateral side. Oozing was noted from the mid trigone, and this was controlled using the [place] electrode. The bladder was emptied and the cystoscope removed. The patient tolerated the procedure well was taken to the recovery room in stable condition.
[2021-05-18 12:05] VITALS: RESP 18
[2021-05-18 12:25] LABS: Glucose,Whole Blood 104 mg/dL (75-99)
[2021-05-18] MEDS ORDERED: DEXAMETHASONE SOD PHOSPHATE 4 MG/ML 1 ML VIAL IVP ONE (13:14)
[2021-05-18 13:42] VITALS: BP 169/73; PULSE 82
== END 2021-05-18 14:00 | disposition home or self-care (01) ==
LOC: OR 08:52
PROVIDERS: ATTEND Urology
DX: N13.30 Unspecified hydronephrosis (principal); C53.9 Malignant neoplasm of cervix uteri, unspecified; I25.10 Atherosclerotic heart disease of native coronary artery without angina pectoris; E11.8 Type 2 diabetes mellitus with unspecified complications; E78.5 Hyperlipidemia, unspecified; I10 Essential (primary) hypertension; I25.2 Old myocardial infarction; M19.90 Unspecified osteoarthritis, unspecified site; Z95.1 Presence of aortocoronary bypass graft; Z87.891 Personal history of nicotine dependence
CPT/HCPCS: 52332; 80048; 85025; 74420; C1769; C1758 ×2; C2617; J1100; J0690; J2405; J2001; J3010; J0330; J2704; J1170; Q9967; J1790

== ENCOUNTER 2021-07-11 14:36 | Emergency (ER) | payer MEDICARE ==
[2021-07-11 15:09] VITALS: BP 118/69; RESP 16; TEMP 98.8
[2021-07-11 16:46] LABS: Anisocytosis Moderate; HCT 28.2 % (34.0-46.0); Hypochromasia Moderate; MCH 28.8 pg (25.0-35.0); MCHC 32.5 g/dL (31.0-37.0); MCV 88.5 fL (80.0-100.0); Mean Platelet Volume 6.8; Microcytosis Slight; Platelet Count 302 k/uL (150-450); Poikilocytosis Slight; RBC 3.18 m/uL (3.80-5.40); RDW 23.9 % (11.5-15.5); WBC 2.5 k/uL (3.8-10.6)
[2021-07-11 16:55] LABS: Albumin 2.8 g/dL (3.5-5.0); Calcium 8.2 mg/dL (8.4-10.2); Total Bilirubin 0.7 mg/dL (0.2-1.3); Total Protein 6.6 g/dL (6.3-8.2)
[2021-07-11 17:03] LABS: HGB 9.1 gm/dL (11.4-16.0)
[2021-07-11 18:43] VITALS: PULSE 86
--- NOTE | 2021-07-11 19:21 | ED ---
General Adult HPI - General Chief complaint: Recheck/Abnormal Lab/Rx Stated complaint: Irregular labs-sent by PCP Time Seen by Provider: 07/11/21 18:19 Source: patient, family Mode of arrival: wheelchair Limitations: no limitations - History of Present Illness Initial comments: Patient is a 65-year-old female with a past medical history of stage III cerv ical cancer, diabetes, hypertension, hyperlipidemia, presenting to the [facility] with weakness. Patient has had a history of low hemoglobin requiring blood transfusion. She states her primary care physician sent her to the ER after a several day long history of worsening weakness, based on her history. Patient was admitted and treated here last month for sepsis with UTI as a source. Patient admits to bilateral lower extremity swelling. Denies chest pain, shortness of breath, abdominal pain, nausea, vomiting, fever, chills, headache, vision changes, recent fall, extremity pain. - Related Data Home Medications Medication Instructions Recorded Confirmed Atorvastatin [Lipitor] 80 mg PO HS 11/18/15 07/11/21 Aspirin EC [Ecotrin Low Dose] 81 mg PO DAILY 07/02/19 07/11/21 Glimepiride [Amaryl] 2 mg PO BID 07/02/19 07/11/21 lisinopriL [Zestril] 2.5 mg PO DAILY 01/04/21 07/11/21 Insulin Glargine,Hum.rec.anlog 10 unit SQ HS 05/16/21 07/11/21 [Lantus Solostar Pen] metFORMIN HCL [Glucophage] 500 mg PO BID 05/16/21 07/11/21 Metoprolol Succinate (ER) [Toprol 25 mg PO DAILY 06/23/21 07/11/21 XL] Nitroglycerin Sl Tabs [Nitrostat] 0.4 mg SL Q5M PRN 06/23/21 07/11/21 OLANZapine [ZyPREXA] 5 mg PO HS 06/23/21 07/11/21 Ondansetron Odt [Zofran ODT] 4 mg PO Q6H PRN 06/23/21 07/11/21 Previous Rx's Medication Instructions Recorded Pantoprazole [Protonix] 40 mg PO AC-BRKFST #30 tab 07/01/21 Cephalexin [Keflex] 500 mg PO Q12HR 7 Days #13 cap 07/11/21 Allergies Allergy/AdvReac Type Severity Reaction Status Date / Time codeine Allergy Rash/Hives Verified 07/11/21 20:18 Review of Systems ROS Statement: Those systems with pertinent positive or pertinent negative responses have been documented in the HPI. ROS Other: All systems not noted in ROS Statement are negative. Past Medical History Past Medical History: Coronary Artery Disease (CAD), Cancer, Diabetes Mellitus, Hyperlipidemia, Hypertension, Myocardial Infarction ([place]), Osteoarthritis (OA) Additional Past Medical History / Comment(s): anemia, getting radiation to cervix for cancer Last Myocardial Infarction Date:: 2013 History of Any Multi-Drug Resistant Organisms: None Reported Past Surgical History: Cholecystectomy, Coronary Bypass/CABG, Heart Catheterization, Heart Catheterization With Stent, Orthopedic Surgery Additional Past Surgical History / Comment(s): 2014 CABG. LEFT CARPAL TUNNEL 4 cardiac stents, stephany cataracts Past Anesthesia/Blood Transfusion Reactions: Postoperative Nausea & Vomiting (PONV) Additional Past Anesthesia/Blood Transfusion Reaction / Comment(s): blood transfusion scheduled for 05/17/21- had one 05/10/21, Date of Last Stent Placement:: 09/2019 Past Psychological History: No Psychological Hx Reported Smoking Status: Former smoker Past Alcohol Use History: None Reported Past Drug Use History: None Reported - Past Family History Father Family Medical History: No Reported History Mother Family Medical History: Cancer General Exam Limitations: no limitations General appearance: alert, in no apparent distress Head exam: Present: atraumatic, normocephalic, normal inspection Eye exam: Present: normal appearance, PERRL, EOMI. Absent: scleral icterus, conjunctival injection, periorbital swelling Neck exam: Present: normal inspection Respiratory exam: Present: normal lung sounds bilaterally. Absent: respiratory distress, wheezes, rales, rhonchi, stridor Cardiovascular Exam: Present: regular rate, normal rhythm, normal heart sounds. Absent: systolic murmur, diastolic murmur, rubs, gallop, clicks Extremities exam: Present: pedal edema (2+) Neurological exam: Present: alert, oriented X3, CN II-XII intact Psychiatric exam: Present: normal affect, normal mood Skin exam: Present: warm, dry, intact, normal color. Absent: rash Course Vital Signs 07/11/21 07/11/21 15:07 18:41 Temperature 98.8 F Pulse Rate 89 Pulse Rate [ 86 Pulse Oximetery ] Respiratory 16 Rate Blood Pressure 118/69 O2 Sat by Pulse 100 Oximetry - Reevaluation(s) Reevaluation #1: Patient appears well, not complaining of pain, no acute changes 07/11/21 21:11 Reevaluation #2: Spoke with Dr. Ham who stated that he did not send patient to the ER for weakness. Informed him of her hypomag and UTI, He stated he would be able to follow up with her in the office as soon as Saturday. Pt is resting comfortably in room, receiving magnesium replacement. 07/11/21 21:39 EKG Findings - EKG Results: EKG: interpreted by ERMD, sinus rhythm, normal ST/T, no acute changes Medical Decision Making - Medical Decision Making Patient is a 65-year-old female presenting to the ER with weakness. It has been gradually increasing for the last several days. She has a history of low hemoglobin requiring a transfusion, due to her history her she states that her PCP recommended she seek evaluation in the ER. Labs revealed evidence of a urinary tract infection and a magnesium of 1.2. EKG and chest x-ray were unremarkable. UTI being treated with Keflex 500 mg twice a day for 7 days with prescription sent home and magnesium is being corrected in [facility] per EMR algorithm. I spoke with Dr. Ham and informed him of the UTI and hypo-magnesium, he stated he would be able to follow-up outpatient as soon as Saturday and he approves of the plan. I answered all questions. Take medication as prescribed. Report back to ER with worsening or new onset symptoms. I discussed this case with my attending Dr. Lynne. - Lab Data Result diagrams: 07/11/21 16:30 07/11/21 16:30 Lab Results 07/11/21 07/11/21 07/11/21 Range/Units 16:30 16:30 16:30 WBC 2.5 L (3.8-10.6) k/uL RBC 3.18 L (3.80-5.40) m/uL Hgb 9.1 L D (11.4-16.0) gm/dL Hct 28.2 L (34.0-46.0) % MCV 88.5 (80.0-100.0) fL MCH 28.8 (25.0-35.0) pg MCHC 32.5 (31.0-37.0) g/dL RDW 23.9 H (11.5-15.5) % Plt Count 302 (150-450) k/uL MPV 6.8 Hypochromasia Moderate Poikilocytosis Slight Anisocytosis Moderate Microcytosis Slight Sodium 136 L (137-145) mmol/L Potassium 5.0 (3.5-5.1) mmol/L Chloride 102 (98-107) mmol/L Carbon Dioxide 29 (22-30) mmol/L Anion Gap 5 mmol/L BUN 11 (7-17) mg/dL Creatinine 0.87 (0.52-1.04) mg/dL Est GFR (CKD-EPI)AfAm 81 (>60 ml/min/1.73 sqM) Est GFR (CKD-EPI)NonAf 70 (>60 ml/min/1.73 sqM) Glucose 99 (74-99) mg/dL Calcium 8.2 L (8.4-10.2) mg/dL Magnesium 1.2 L (1.6-2.3) mg/dL Total Bilirubin 0.7 (0.2-1.3) mg/dL AST 35 (14-36) U/L ALT 15 (4-34) U/L Alkaline Phosphatase 110 (38-126) U/L Troponin I (0.000-0.034) ng/mL NT-Pro-B Natriuret Pep pg/mL Total Protein 6.6 (6.3-8.2) g/dL Albumin 2.8 L (3.5-5.0) g/dL Urine Color Urine Appearance (Clear) Urine pH (5.0-8.0) Ur Specific Heppner (1.001-1.035) Urine Protein (Negative) Urine Glucose (UA) (Negative) Urine Ketones (Negative) Urine Blood (Negative) Urine Nitrite (Negative) Urine Bilirubin (Negative) Urine Urobilinogen (<2.0) mg/dL Ur Leukocyte Esterase (Negative) Urine RBC (0-5) /hpf Urine WBC (0-5) /hpf Ur Squamous Epith Cells (0-4) /hpf Urine Bacteria (None) /hpf Hyaline Casts (0-2) /lpf Urine Mucus (None) /hpf Urine Yeast (Budding) (None) /hpf Coronavirus (PCR) (Not Detectd) 0301/22 03/01/22 03/01/22 Range/Units 16:30 16:30 18:45 WBC (3.8-10.6) k/uL RBC (3.80-5.40) m/uL Hgb (11.4-16.0) gm/dL Hct (34.0-46.0) % MCV (80.0-100.0) fL MCH (25.0-35.0) pg MCHC (31.0-37.0) g/dL RDW (11.5-15.5) % Plt Count (150-450) k/uL MPV Hypochromasia Poikilocytosis Anisocytosis Microcytosis Sodium (137-145) mmol/L Potassium (3.5-5.1) mmol/L Chloride (98-107) mmol/L Carbon Dioxide (22-30) mmol/L Anion Gap mmol/L BUN (7-17) mg/dL Creatinine (0.52-1.04) mg/dL Est GFR (CKD-EPI)AfAm (>60 ml/min/1.73 sqM) Est GFR (CKD-EPI)NonAf (>60 ml/min/1.73 sqM) Glucose (74-99) mg/dL Calcium (8.4-10.2) mg/dL Magnesium (1.6-2.3) mg/dL Total Bilirubin (0.2-1.3) mg/dL AST (14-36) U/L ALT (4-34) U/L Alkaline Phosphatase (38-126) U/L Troponin I <0.012 (0.000-0.034) ng/mL NT-Pro-B Natriuret Pep 892 pg/mL Total Protein (6.3-8.2) g/dL Albumin (3.5-5.0) g/dL Urine Color Urine Appearance (Clear) Urine pH (5.0-8.0) Ur Specific Heppner (1.001-1.035) Urine Protein (Negative) Urine Glucose (UA) (Negative) Urine Ketones (Negative) Urine Blood (Negative) Urine Nitrite (Negative) Urine Bilirubin (Negative) Urine Urobilinogen (<2.0) mg/dL Ur Leukocyte Esterase (Negative) Urine RBC (0-5) /hpf Urine WBC (0-5) /hpf Ur Squamous Epith Cells (0-4) /hpf Urine Bacteria (None) /hpf Hyaline Casts (0-2) /lpf Urine Mucus (None) /hpf Urine Yeast (Budding) (None) /hpf Coronavirus (PCR) Not Detected (Not Detectd) 07/11/21 Range/Units 19:35 WBC (3.8-10.6) k/uL RBC (3.80-5.40) m/uL Hgb (11.4-16.0) gm/dL Hct (34.0-46.0) % MCV (80.0-100.0) fL MCH (25.0-35.0) pg MCHC (31.0-37.0) g/dL RDW (11.5-15.5) % Plt Count (150-450) k/uL MPV Hypochromasia Poikilocytosis Anisocytosis Microcytosis Sodium (137-145) mmol/L Potassium (3.5-5.1) mmol/L Chloride (98-107) mmol/L Carbon Dioxide (22-30) mmol/L Anion Gap mmol/L BUN (7-17) mg/dL Creatinine (0.52-1.04) mg/dL Est GFR (CKD-EPI)AfAm (>60 ml/min/1.73 sqM) Est GFR (CKD-EPI)NonAf (>60 ml/min/1.73 sqM) Glucose (74-99) mg/dL Calcium (8.4-10.2) mg/dL Magnesium (1.6-2.3) mg/dL Total Bilirubin (0.2-1.3) mg/dL AST (14-36) U/L ALT (4-34) U/L Alkaline Phosphatase (38-126) U/L Troponin I (0.000-0.034) ng/mL NT-Pro-B Natriuret Pep pg/mL Total Protein (6.3-8.2) g/dL Albumin (3.5-5.0) g/dL Urine Color Yellow Urine Appearance Cloudy H (Clear) Urine pH 8.0 (5.0-8.0) Ur Specific Heppner 1.012 (1.001-1.035) Urine Protein 1+ H (Negative) Urine Glucose (UA) Negative (Negative) Urine Ketones Negative (Negative) Urine Blood Negative (Negative) Urine Nitrite Negative (Negative) Urine Bilirubin Negative (Negative) Urine Urobilinogen 2.0 (<2.0) mg/dL Ur Leukocyte Esterase Moderate H (Negative) Urine RBC 3 (0-5) /hpf Urine WBC 60 H (0-5) /hpf Ur Squamous Epith Cells 1 (0-4) /hpf Urine Bacteria Rare H (None) /hpf Hyaline Casts 1 (0-2) /lpf Urine Mucus Rare H (None) /hpf Urine Yeast (Budding) Rare H (None) /hpf Coronavirus (PCR) (Not Detectd) Disposition Clinical Impression: Hypomagnesemia, UTI (urinary tract infection) Disposition: HOME SELF-CARE Condition: Good Additional Instructions: Follow-up with PCP in one to 2 days. You were started on your first dose of her antibiotic that is treating her UTI in the ER, continue taking medication as pr escribed.. Report back to ER with worsening or new onset symptoms. Prescriptions: Cephalexin [Keflex] 500 mg PO Q12HR 7 Days #13 cap Is patient prescribed a controlled substance at d/c from ED?: No Referrals: Fletcher Ham DO [Primary Care Provider] - 1-2 days Time of Disposition: 21:44
--- NOTE | 2021-07-11 19:43 | XR ---
EXAMINATION TYPE: XR chest 2V DATE OF EXAM: 07/11/2021 COMPARISON: 06/25/2021 HISTORY: Chest pain TECHNIQUE: FINDINGS: Heart is normal. Lungs are clear of consolidation. There is no heart failure. There are no hilar masses. Costophrenic angles are clear. There are sternal wires. IMPRESSION: No active cardiopulmonary disease. Normal heart. There is clearing of small infiltrate la teral left lung base compared to old exam.
[2021-07-11] MEDS ORDERED: Magnesium Replacement Protocol 1 EACH MISC MISCELLANE PRN (19:46)
[2021-07-11 19:48] LABS: Appearance,Urine Cloudy (Clear); Bacteria,Urine Rare /hpf; Bilirubin,Urine Negative (Negative); Blood,Urine Negative (Negative); Budding Yeast,Urine Rare /hpf; Color,Urine Yellow; Glucose,Urine (UA) Negative (Negative); Hyaline Casts,Urine 1 /lpf (0-2); Ketones,Urine Negative (Negative); Leukocyte Esterase,Urine Moderate (Negative); Mucus,Urine Rare /hpf; Nitrite,Urine Negative (Negative); Protein,Urine 1+ (Negative); RBC,Urine 3 /hpf (0-5); Specific Gravity,Urine 1.012 (1.001-1.035); Squamous Epithelial Cell,Urine 1 /hpf (0-4); WBC,Urine 60 /hpf (0-5)
[2021-07-11] MEDS: CEPHALEXIN 500 MG CAP PO STA ×2 (20:41→20:47)
[2021-07-11] MEDS: MAGNESIUM SULFATE-D5W PMX 1 GM in DEXTROSE/WATER 1 100ML.BAG IVPB SCH ×3 (20:41→23:09)
[2021-07-11] MEDS ORDERED: CEPHALEXIN 250 MG/5 ML SUSPENSION PO STA (20:55)
== END 2021-07-12 00:29 | disposition home or self-care (01) ==
LOC: EC 14:36
DX: E83.42 Hypomagnesemia (principal); N39.0 Urinary tract infection, site not specified; I25.10 Atherosclerotic heart disease of native coronary artery without angina pectoris; E11.9 Type 2 diabetes mellitus without complications; E78.5 Hyperlipidemia, unspecified; I10 Essential (primary) hypertension; I25.2 Old myocardial infarction; M19.90 Unspecified osteoarthritis, unspecified site; Z20.822 Contact with and (suspected) exposure to COVID-19; Z79.82 Long term (current) use of aspirin; Z79.4 Long term (current) use of insulin; Z79.84 Long term (current) use of oral hypoglycemic drugs; Z88.5 Allergy status to narcotic agent; Z90.49 Acquired absence of other specified parts of digestive tract; Z95.1 Presence of aortocoronary bypass graft; Z87.891 Personal history of nicotine dependence
CPT/HCPCS: 99285; 96365; 96366; 36415; 93005; 83880; 80053; 83735; 84484; 85027; 81001; 87086; 87635; 71046; J3475

== ENCOUNTER → 2021-08-01 | Outpatient (CLI) | payer MEDICARE ==
[2021-08-02 13:44] LABS: Coronavirus SARS CoV-2 Not Detected (Not Detected)
== END | disposition home or self-care (01) ==
LOC: LABWHC1 14:37
PROVIDERS: ATTEND Radiology Radiation Oncology
DX: Z01.812 Encounter for preprocedural laboratory examination (principal); Z20.822 Contact with and (suspected) exposure to COVID-19; C53.0 Malignant neoplasm of endocervix; C77.5 Secondary and unspecified malignant neoplasm of intrapelvic lymph nodes; Z79.899 Other long term (current) drug therapy
CPT/HCPCS: U0003; C9803

== ENCOUNTER → 2021-11-03 | Outpatient (CLI) | payer MEDICARE ==
--- NOTE | 2021-11-03 16:52 | PE ---
Nuclear medicine PET/CT HISTORY: Cervical carcinoma, subsequent Patient received 12.3 mCi F-18 FDG intravenously and delayed scanning was performed from the skull ba se to the mid thighs. A localization and attenuation correction CT scan was performed. Correlation to prior exam dated 03/26/2021 Average mediastinal uptake SUV 1.6, average liver uptake SUV 2.3 Chest and neck: There is no cervical or supraclavicular adenopathy. There is no evident lung mass. No pleural pericardial effusion. No mediastinal, axillary, or hilar ad enopathy. Patient is post median sternotomy, there are extensive coronary artery calcifications. ABDOMEN: There is no evident liver mass. Patient is post cholecystectomy. No retroperitoneal adenopat hy. No ascites. Double-J stent is present within the bilateral kidneys. Aorta shows atheromatous valladares ge. No suspicious uptake. Patient is post hysterectomy. Osseous structures no suspicious uptake. IMPRESSION: There is no suspicious uptake.
== END | disposition home or self-care (01) ==
LOC: RADXRMAIN 08:13
PROVIDERS: ATTEND Internal Medicine Hematology & Oncology
DX: C53.1 Malignant neoplasm of exocervix (principal)
CPT/HCPCS: 78815; A9552

== ENCOUNTER → 2022-01-08 | Outpatient (CLI) | payer MEDICARE ==
--- NOTE | 2022-01-08 11:39 | US ---
EXAMINATION TYPE: US kidneys/renal and bladder DATE OF EXAM: 01/08/2022 COMPARISON: US CLINICAL HISTORY: N13.30 HYDRONEPHROSIS. Hydronephrosis. Hx stents removed. EXAM MEASUREMENTS: Right Kidney: 11.1 x 5.6 x 4.9 cm Left Kidney: 10.8 x 5.3 x 5.4 cm Right Kidney: Renal pelvis appears dilated medially measuring 1.5 cm. Consistent with extrarenal pelv is. Seen post void as well. Left Kidney: No hydronephrosis or masses seen Bladder: Slightly limited, not fully distended. Appears anechoic. Bilateral Jets seen: Yes IMPRESSION: 1. No evidence for obstructive uropathy 2. Extra renal pelvis on the right.
== END | disposition home or self-care (01) ==
LOC: RADUSWWP 10:38
PROVIDERS: ATTEND Urology
DX: N13.30 Unspecified hydronephrosis (principal)
CPT/HCPCS: 76770

== ENCOUNTER → 2022-11-02 | Outpatient (CLI) | payer MEDICARE ==
--- NOTE | 2022-11-04 09:33 | PE ---
EXAMINATION TYPE: PET CT fusion skull to thigh DATE OF EXAM: 11/02/2022 CLINICAL INDICATION:Female, 67 years old with history of C53.1; TECHNIQUE: Following the intravenous administration of 12.3 mCi of F-18 FDG, whole body images are performed from the skull base to the midthigh. Images are reviewed on the computer in the coronal, a xial, and sagittal planes. Reconstructed rotating images are created on independent workstation and reviewed on the computer. A non-contrast CT is performed in conjunction with the PET scan. Glucose level 205 mg/dL COMPARISON: CT None, PET/CT 11/03/2021, 03/26/2021 FINDINGS: Mediastinal SUV mean is 1.8. Hepatic parenchyma SUV mean is 2.8. SKULL BASE AND NECK: No suspicious radiotracer activity. CHEST, MEDIASTINUM, AND HILAR REGION: No suspicious radiotracer activity. ABDOMEN AND PELVIS: No suspicious radiotracer activity. MUSCULOSKELETAL STRUCTURES: No suspicious radiotracer activity. OTHER CT: Bilateral atherosclerosis at the carotid bifurcations throughout the arterial vasculature i ncluding the coronary arteries. Suspected cholecystectomy clips. Fat-containing umbilical hernia. Sma ll hiatal hernia. The heart is mildly enlarged size. Azygous fissure is present. IMPRESSION: Limited evaluation secondary to elevated blood sugar level which can decrease in metabolic uptake of findings. No suspicious radiotracer activity.
== END | disposition home or self-care (01) ==
LOC: RADPETMAIN 09:12
PROVIDERS: ATTEND Internal Medicine Hematology & Oncology
DX: C53.1 Malignant neoplasm of exocervix (principal); R73.9 Hyperglycemia, unspecified
CPT/HCPCS: 78815; A9552

== ENCOUNTER → 2023-11-22 | Outpatient (CLI) | payer MEDICARE ==
--- NOTE | 2023-12-02 17:33 | PE ---
EXAMINATION TYPE: PET CT fusion skull to thigh DATE OF EXAM: 11/22/2023 COMPARISON: No recent pertinent CT Prior PET/CT: 11/02/2022 HISTORY: Cervical cancer TECHNIQUE: Following the intravenous administration of 13.1 mCi of F-18 FDG, whole body images are p erformed from the skull base to the midthigh. Images are reviewed on the computer in the coronal, ax ial, and sagittal planes. Reconstructed rotating images are created on independent workstation and r eviewed on the computer. A localization and attenuation correction CT is performed in conjunction w ith the PET scan. DLP: 943.5 to mGycm SCAN: Subsequent Blood glucose: 192 mg/dL Average Mediastinum SUV: 2.91 Average Liver SUV: 3.75 FINDINGS: NECK: There is some intense uptake in the prevertebral space posterior nasal level, image 18, SUV 5. 93. This may track inferiorly could be related to muscular activity. THORAX: No abnormal uptake ABDOMEN: Heterogenous appearance to the liver. Suspicious focal nodule within the liver not clearly i dentified. There is a focus of increased radiotracer within the left Periaortic region soft tissue density with an SUV of 9.05, image 156. Abnormal metastatic lymph node should be considered. This could be related to ureter. PELVIS: No abnormal uptake OSSEOUS STRUCTURES: There may be some mild uptake within an anterior lateral right rib, image 94 SUV 2.51 couple of small areas of uptake are within the mid sternum, example image 80, SUV 2.[address]: Soft tissue density correlates with the abnormal uptake. Prior study appears to have normal ureter lateral to this area suggesting metastatic lymph node more probable. COMPARISON: Left periaortic lymph node is new uptake. IMPRESSION: 1. Suspicious soft tissue density with abnormal uptake in the left periaortic region. Metastatic lesi on suspected. 2. Some limitation on the examination may be related to blood glucose.
== END | disposition home or self-care (01) ==
LOC: RADPETMAIN 13:15
PROVIDERS: ATTEND Internal Medicine Hematology & Oncology
DX: C53.1 Malignant neoplasm of exocervix (principal); C50.112 Malignant neoplasm of central portion of left female breast; D50.0 Iron deficiency anemia secondary to blood loss (chronic); E11.9 Type 2 diabetes mellitus without complications
CPT/HCPCS: 78815; A9552

== ENCOUNTER → 2024-06-11 | Outpatient (CLI) | payer MEDICARE ==
--- NOTE | 2024-06-13 15:51 | PE ---
EXAMINATION TYPE: PET CT fusion skull to thigh DATE OF EXAM: 06/11/2024 CLINICAL INDICATION:Female, 68 years old with history of C53.1 CERVICAL CANCER; TECHNIQUE: Following the intravenous administration of 10.6 mCi of F-18 FDG, whole body images are performed from the skull base to the midthigh. Images are reviewed on the computer in the coronal, a xial, and sagittal planes. Reconstructed rotating images are created on independent workstation and reviewed on the computer. A non-contrast CT is performed in conjunction with the PET scan. Glucose level 117 mg/dL CT DLP: 964.99 mGycm, Automated exposure control for dose reduction was used. COMPARISON: CT None, PET/CT 11/22/2023, 11/02/2022, 11/03/2021, MRI: 06/30/2021 FINDINGS: Mediastinal SUV mean is 2.9. Hepatic parenchyma SUV mean is 3.7. SKULL BASE AND NECK: No suspicious radiotracer activity. CHEST, MEDIASTINUM, AND HILAR REGION: No suspicious radiotracer activity. ABDOMEN AND PELVIS: Posthysterectomy changes without suspicious uptake at the vaginal cuff. Enlarging left distal periaortic lymph node measuring 2.7 x 2.3 cm, previously 2.2 x 1.5 cm. This dem onstrates a maximum SUV of 23.8, previously 11.1. MUSCULOSKELETAL STRUCTURES: Focus of radiotracer uptake identified within the posterior neck midline soft tissues posterior to th e C6 spinous. This demonstrates a max SUV of 8.1. Additional focus within the right neck paraspinal musculature demonstrating a max SUV of 6.7. Additional focus of radiotracer uptake identified within the anterior left acetabulum without corresp onding lesion on CT. This demonstrates a maximum SUV of 8.3. OTHER CT: Bilateral aphakia. Bilateral carotid bulb calcifications. Atherosclerotic calcification of the aorta and its branches. Postsurgical changes from sternotomy. Moderate coronary arterial calcific ations. Multilevel degenerative changes of the visualized spine. Gallbladder is surgically absent. Sm all fat containing umbilical hernia. IMPRESSION: 1. Findings concerning for recurrence/metastasis with enlarging FDG avid left periaortic lymph node measuring up to 2.7 cm. 2. Indeterminate foci of radiotracer activity posterior to the C6 spinous process with adjacent focu s within the cervical paraspinal musculature. Additional focus identified within the anterior left ac etabulum. No corresponding abnormality identified on CT. Could represent inflammatory change with met astasis not included. Attention on follow-up exam. [facility], , 06/13/2024 3:49 PM
== END | disposition home or self-care (01) ==
LOC: RADPETMAIN 14:35
PROVIDERS: ATTEND Internal Medicine Hematology & Oncology
DX: C53.1 Malignant neoplasm of exocervix (principal); K42.9 Umbilical hernia without obstruction or gangrene; I70.0 Atherosclerosis of aorta; H27.03 Aphakia, bilateral
CPT/HCPCS: 78815; A9552

== ENCOUNTER 2024-08-14 09:11 | Day surgery (SDC) | payer MEDICARE ==
[2024-08-12 10:03] VITALS: BMI 44.8
[~2024-08-14 09:11] MED LIST changes: -LACTATED RINGERS 1,000 ML IV SCH; -METOCLOPRAMIDE 5 MG/ML 2 ML VIAL IVP PRN; +MIDAZOLAM 2 MG/2 ML VIAL IV PRN; -ONDANSETRON 4 MG/2 ML VIAL IVP ONE; +Pre Op ABX Message 1 EACH MISC MISCELLANE ONE; +fentaNYL (PF) 50 MCG/ML 2 ML AMP IVP PRN
[2024-08-14] MEDS: IV FLUID CONTINUATION 1,000 ML IV ONE ×2 (10:00→10:39)
[2024-08-14 10:03] LABS: Glucose,Whole Blood 105 mg/dL (70-110)
[2024-08-14] MEDS: LACTATED RINGERS 1,000 ML IV SCH (10:06)
[2024-08-14 10:18] LABS: Anisocytosis Slight; Basophils % (A) 0 %; Eosinophils # (A) 0.3 k/uL (0-0.7); Eosinophils % (A) 4 %; HCT 25.3 % (34.0-46.0); HGB 7.1 gm/dL (11.4-16.0); Hypochromasia Marked; Lymphocytes # (A) 2.2 k/uL (1.0-4.8); Lymphocytes % (A) 27 %; MCH 19.2 pg (25.0-35.0); MCHC 28.1 g/dL (31.0-37.0); MCV 68.2 fL (80.0-100.0); Mean Platelet Volume 7.3; Microcytosis Marked; Monocytes # (A) 0.5 k/uL (0-1.0); Monocytes % (A) 6 %; Neutrophils # (A) 4.8 k/uL (1.3-7.7); Neutrophils % (A) 59 %; Platelet Count 329 k/uL (150-450); Poikilocytosis Slight; RBC 3.71 m/uL (3.80-5.40); RDW 17.7 % (11.5-15.5); WBC 8.1 k/uL (3.8-10.6)
[2024-08-14] MEDS: DEXAMETHASONE SOD PHOSPHATE 4 MG/ML 1 ML VIAL IV ONE (10:26)
[2024-08-14] MEDS: ACETAMINOPHEN TAB 500 MG TAB PO PRN (10:26)
[2024-08-14] MEDS: ONDANSETRON 4 MG/2 ML VIAL IVP ONE (10:26)
[2024-08-14 10:27] LABS: African American GFR (CKD) 46 (>60 ml/min/1.73 sqM); Anion Gap 7 mmol/L; Blood Urea Nitrogen 23 mg/dL (7-17); Carbon Dioxide 27 mmol/L (22-30); Chloride 106 mmol/L (98-107); Glucose 99 mg/dL (74-99); Non-African American GFR(CKD) 40 (>60 ml/min/1.73 sqM); Potassium 4.4 mmol/L (3.5-5.1); Sodium 140 mmol/L (137-145)
[2024-08-14] MEDS: HEPARIN SODIUM,PORCINE 5,000 UNIT/ML 1 ML VIAL SQ PRN (10:27)
--- NOTE | 2024-08-14 10:28 | P.GSHP ---
History of Present Illness H&P Date: 08/14/24 Chief Complaint: Cervical cancer 68-year-old female here today for Port-A-Cath placement. Patient diagnosed with cervical cancer. Also has significant anemia and receiving iron infusions and transfusions. Past Medical History Past Medical History: Coronary Artery Disease (CAD), Cancer, Diabetes Mellitus, Hyperlipidemia, Hypertension, Myocardial Infarction ([place]), Osteoarthritis (OA) Additional Past Medical History / Comment(s): hx radiation for cervix for cancer dx 2021-current mets to lymphnode-starting chemo,anemia Last Myocardial Infarction Date:: 2013 History of Any Multi-Drug Resistant Organisms: None Reported Past Surgical History: Cholecystectomy, Coronary Bypass/CABG, Heart Catheterization, Heart Catheterization With Stent, Orthopedic Surgery Additional Past Surgical History / Comment(s): 2014 CABG. LEFT CARPAL TUNNEL 4 cardiac stents, stephany cataracts Past Anesthesia/Blood Transfusion Reactions: Postoperative Nausea & Vomiting (PONV) Additional Past Anesthesia/Blood Transfusion Reaction / Comment(s): prior blood transfusion scheduled for 05/17/21- had one 05/10/21, no reactions. requires something for PONV-requests zofran Date of Last Stent Placement:: 09/2019 Smoking Status: Former smoker - Past Family History Father Family Medical History: No Reported History Mother Family Medical History: Cancer Medications and Allergies Home Medications Medication Instructions Recorded Confirmed Type Atorvastatin [Lipitor] 80 mg PO HS 11/18/15 08/12/24 History Aspirin EC [Ecotrin Low Dose] 81 mg PO DAILY 07/02/19 08/14/24 History Insulin Glargine,Hum.rec.anlog 16 unit SQ HS 05/16/21 08/12/24 History [Lantus Solostar Pen] Nitroglycerin Sl Tabs [Nitrostat] 0.4 mg SL Q5M PRN 06/23/21 08/12/24 History Apixaban [Eliquis] 2.5 mg PO BID 05/29/23 08/14/24 History Furosemide [Lasix] 20 mg PO DAILY PRN 05/29/23 08/12/24 History Glimepiride 2 mg PO BID 05/29/23 08/12/24 History Metoprolol Succinate (ER) [Toprol 25 mg PO QAM 05/29/23 08/12/24 History Xl] lisinopriL 2.5 mg PO HS 05/29/23 08/12/24 History Pantoprazole Sodium [Protonix] 40 mg PO QAM 08/12/24 08/12/24 History Allergies Allergy/AdvReac Type Severity Reaction Status Date / Time codeine Allergy Rash/Hives Verified 08/14/24 09:51 Surgical - Exam Vital Signs Temp Pulse Resp BP Pulse Ox 98.4 F 83 20 179/70 100 08/14/24 10:06 08/14/24 10:06 08/14/24 10:06 08/14/24 10:06 08/14/24 10:06 Physical exam: General: Well-developed, well-nourished HEENT: Normocephalic, sclerae nonicteric Abdomen: Nontender, nondistended Extremities: No edema Neuro: Alert and oriented Results - Labs 08/14/24 10:00 Abnormal Lab Results - Last 24 Hours (Table) 08/14/24 Range/Units 10:00 RBC 3.71 L (3.80-5.40) m/uL Hgb 7.1 L (11.4-16.0) gm/dL Hct 25.3 L (34.0-46.0) % MCV 68.2 L (80.0-100.0) fL MCH 19.2 L (25.0-35.0) pg MCHC 28.1 L (31.0-37.0) g/dL RDW 17.7 H (11.5-15.5) % Assessment and Plan (1) Cervical cancer Narrative/Plan: Will proceed with Port-A-Cath placement at this time. Risks of bleeding, infection, DVT, pneumothorax, catheter malfunction, anesthesia related complications were discussed. The patient understands and wishes to proceed. Current Visit: No Status: Acute Priority: High Code(s): C53.9 - MALIGNANT NEOPLASM OF CERVIX UTERI, UNSPECIFIED SNOMED Code(s): 767865977
[2024-08-14] MEDS: METOCLOPRAMIDE 5 MG/ML 2 ML VIAL IVP STA (10:36)
[2024-08-14] MEDS ORDERED: fentaNYL (PF) 50 MCG/ML 2 ML AMP ONE (10:38)
[2024-08-14] MEDS ORDERED: MIDAZOLAM 2 MG/2 ML VIAL ONE (10:38)
[2024-08-14] MEDS ORDERED: PROPOFOL 10 MG/ML 20 ML VIAL IV ONE (10:38)
[2024-08-14] MEDS ORDERED: SUCCINYLCHOLINE CHLORIDE 200 MG/10 ML VIAL IV ONE (10:38)
[2024-08-14] MEDS ORDERED: ePHEDrine 50 MG/ML 1 ML VIAL ONE (10:38)
[2024-08-14] MEDS ORDERED: LIDOCAINE 4% LTA KIT (4 ML) TOPICAL ONE (10:38)
[2024-08-14] MEDS ORDERED: LIDOCAINE 1% INJ 10MG/ML (20 ML MDV) ONE (10:38)
[2024-08-14] MEDS: ceFAZolin 1,000 MG VIAL IVPB ONE (10:42)
[2024-08-14] MEDS: LIDOCAINE 1% INJ 10MG/ML (20 ML MDV) IM ONE (11:00)
--- NOTE | 2024-08-14 11:33 | P.OP ---
Date of Procedure: 08/14/24 Procedure(s) Performed: PREOPERATIVE DIAGNOSIS: Cervical cancer POSTOPERATIVE DIAGNOSIS: Same PROCEDURE: Port-A-Cath placement with fluoroscopic and ultrasound guidance SURGEON: Mario EBL: 10 cc ANESTHESIA: General COMPLICATIONS: None OPERATIVE PROCEDURE: Patient was brought and placed on the operative table in the supine position. The patient was placed under general anesthesia at that time. The chest and neck were prepped and draped in usual sterile fashion. The ultrasound probe was used to identify the location of the right internal jugular vein. The skin was localized with lidocaine. The Seldinger needle was advanced into the IJ under ultrasound guidance. The wire was advanced through the needle under fluoroscopic guidance into the superior vena cava. A port pocket was created in the right infraclavicular location. The catheter was tunneled from the wire entrance site to the port pocket. The port was then connected to the catheter. The dilator introducer was threaded over the guidewire. The guidewire and dilator were then removed. The catheter was advanced through the introducer and introducer was then removed. The tip was seen to be in the right atrial junction via fluoroscopy. A picture of the radiograph showing the tip of the catheter was taken. Port was flushed with both saline and a Hep-Lock solution. There was good flow both in and out of the port. The port was sutured in underlying tissues using 3-0 silk sutures. The subcutaneous tissues were reapproximated using 3-0 Vicryl sutures and the skin at both locations using 4-0 Monocryl sutures. Skin glue and sterile dressings then applied. DISPOSITION: Stable to recovery room
--- NOTE | 2024-08-14 11:36 | FL ---
EXAMINATION TYPE: FL guided central line placement DATE OF EXAM: 08/14/2024 FLUOROSCOPY FL TIME- 4.8 SEC DAP- 0.1628 DR LAY HERNÁNDEZ A CATH 2 images are submitted showing right anterior chest wall injection port placement with tunneled mona ter and IJ access. Median sternotomy wires partially visualized. The patient is intubated. [facility], Work[facility], 08/14/2024 11:34 AM
[2024-08-14 11:41] VITALS: RESP 16; TEMP 97
[2024-08-14] MEDS ORDERED: traMADol 50 MG TAB PO PRN (12:37)
[2024-08-14] MEDS ORDERED: NALOXONE 0.4 MG/ML 1 ML VIAL IV PRN (12:37)
--- NOTE | 2024-08-14 13:24 | XR ---
EXAMINATION TYPE: XR chest 1V portable DATE OF EXAM: 08/14/2024 1:00 PM COMPARISON: 07/11/2021 CLINICAL INDICATION: Female, 68 years old with history of POST OP PORT PLACEMENT, , FINDINGS: Right anterior chest wall injection port with catheter tip at the mid SVC level. Median sternotomy wi res and post-CABG clips. Heart mildly enlarged. Interstitial density. No shikha consolidation or pleur al effusion. IMPRESSION: 1. Right anterior chest wall injection port with catheter tip at the mid SVC level. 2. Mild cardiomegaly. Given interstitial prominence, correlate to exclude mild pulmonary vascular con gestion. [facility], Workstation: [email or web address], 08/14/2024 1:21 PM
[2024-08-14 13:42] LABS: Glucose,Whole Blood 169 mg/dL (70-110)
[2024-08-14 14:03] VITALS: BP 129/52; PULSE 84
== END 2024-08-14 14:05 | disposition home or self-care (01) ==
LOC: OR 09:11
PROVIDERS: ATTEND Surgery
DX: C53.9 Malignant neoplasm of cervix uteri, unspecified (principal); I25.10 Atherosclerotic heart disease of native coronary artery without angina pectoris; I25.2 Old myocardial infarction; I11.9 Hypertensive heart disease without heart failure; D64.9 Anemia, unspecified; E11.9 Type 2 diabetes mellitus without complications; E78.5 Hyperlipidemia, unspecified; M19.90 Unspecified osteoarthritis, unspecified site; Z87.891 Personal history of nicotine dependence; Z90.49 Acquired absence of other specified parts of digestive tract; Z95.1 Presence of aortocoronary bypass graft; Z45.2 Encounter for adjustment and management of vascular access device; Z95.5 Presence of coronary angioplasty implant and graft; Z88.5 Allergy status to narcotic agent; Z79.01 Long term (current) use of anticoagulants; Z79.02 Long term (current) use of antithrombotics/antiplatelets; Z79.82 Long term (current) use of aspirin; Z79.4 Long term (current) use of insulin; Z79.899 Other long term (current) drug therapy
CPT/HCPCS: 80048; 85025; 77001; 71045; 36561; C1788; J2250; J0330; J1644; J1100; J2765; J2405; J0690; J2003; J3010; J1642; J2704

== ENCOUNTER → 2024-11-27 | Outpatient (CLI) | payer MEDICARE ==
--- NOTE | 2024-11-29 08:16 | PE ---
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 Images are reviewed on the computer in the coronal, a xial, and sagittal planes. Reconstructed rotating images are created on independent workstation and reviewed on the computer. A non-contrast CT is performed in conjunction with the PET scan. Glucose level 130 mg/dL CT DLP: 1313 mGycm, Automated exposure control for dose reduction was used. COMPARISON: CT None, PET/CT 06/11/2024, 11/22/2023, 11/02/2022, 11/03/2021, MRI: None FINDINGS: Mediastinal SUV mean is 2.4. Hepatic parenchyma SUV mean is 3.0. SKULL BASE AND NECK: No suspicious radiotracer activity. CHEST, MEDIASTINUM, AND HILAR REGION: Development of a right lung base consolidative opacity measuring up to 1.8 cm with a max SUV of 5.8. Development of a right lower lobe 5 mm pulmonary nodule without suspicious FDG activity. Development of a subpleural right lower lobe 7 mm pulmonary nodule without suspicious FDG activity. Development of bilateral hilar and mediastinal adenopathy. Greatest SUV on the right is 7.4. Greatest SUV on the left is 6.7. Subcarinal lymph node measures up to 1.8 cm short axis and demonstrates a ma ximum SUV of 8.7. ABDOMEN AND PELVIS: Posthysterectomy changes without suspicious uptake at the vaginal cuff. Decreased size of left distal para-aortic lymph node measuring up to 1.2 cm, previously 2.[address] a maximum SUV of 3.6, previously 23.8, 11.1. Development of FDG avid peripancreatic lymph nodes with largest measuring up to 2.8 cm with a maximum SUV of 7.7. MUSCULOSKELETAL STRUCTURES: Previously seen focus of radiotracer within the posterior neck midline soft tissues at the C6 spinous process is no longer visualized. Previously seen focus of radiotracer within the right neck paraspinal musculature is no longer visual ized. Previously seen focus of radiotracer in the region of the left iliopsoas muscle and anterior acetabul um is redemonstrated with a maximum SUV 6.7, previous 8.3. Likely related to inflammation. Increased radiotracer uptake identified within the sternum related to sternotomy. Heterogenous radiotracer uptake identified within the thoracolumbar spine likely related to posttreat ment change. OTHER CT: Bilateral aphakia. Bilateral carotid bulb calcifications. Right anterior chest wall IJ appr oach Mediport catheter distal tip terminating at the superior cavoatrial junction. Atherosclerotic ca lcification of the aorta and its branches. Macrocalcification within the right thyroid lobe. Moderate coronary arterial calcifications. Multilevel degenerative changes of the visualized spine. [place] er is surgically absent. Small hiatal hernia. Small fat containing umbilical hernia. IMPRESSION: Mixed response with decrease size and FDG activity within previously seen periaortic lymph node, rodriguez tia development of bilateral hilar and mediastinal FDG avid enlarged lymph nodes. Additionally enlarg ed peripancreatic FDG avid lymph nodes. There are couple of small new right lower lobe pulmonary nodu les without suspicious FDG activity. These are below this PET sensitivity. Raises concern for possibl e metastasis. [facility], , 11/29/2024 8:14 AM
== END | disposition home or self-care (01) ==
LOC: RADPETMAIN 09:15
PROVIDERS: ATTEND Internal Medicine Hematology & Oncology
DX: C53.1 Malignant neoplasm of exocervix (principal); E11.9 Type 2 diabetes mellitus without complications; R59.0 Localized enlarged lymph nodes; R91.8 Other nonspecific abnormal finding of lung field
CPT/HCPCS: 78815; A9552